=== PATIENT | male | born 1960 | race Caucasian/White ===

== ENCOUNTER 2025-02-22 13:57 | Emergency (ER) | payer SELFPAY ==
[~2025-02-22] VITALS: Ht 170.2 cm; Wt 70.0 kg
[2025-02-22 14:03] VITALS: TEMP 36.9; O2SAT 100; O2SAT 99
[2025-02-22] MEDS ORDERED: ACET-2708 MT (15:13)
[2025-02-22] MEDS ORDERED: BO1 TP (15:13)
[2025-02-22 15:25] VITALS: BP 144/89; PULSE 95; RESP 16
[2025-02-22] MEDS: TETANUS, DIPHTHERIA, PERTUSSIS VAC/PF 0.5ML (>10YR OLD) IM ONE (15:25)
[2025-02-22] MEDS: KETOROLAC 30MG/ML VIAL IV ONE (15:25)
[2025-02-22] MEDS: BACITRACIN ZINC OINT UDPKT TOP ONE (15:26)
== END 2025-02-22 15:33 | disposition home or self-care (01) ==
LOC: ER 13:57
DX: S61.211A Laceration without foreign body of left index finger without damage to nail, initial encounter (principal); X58.XXXA Exposure to other specified factors, initial encounter; Y93.89 Activity, other specified; Y92.89 Other specified places as the place of occurrence of the external cause; Y99.0 Civilian activity done for income or pay
CPT/HCPCS: 73130; 90715; 99283; J1885